=== PATIENT | male | born 1950 | race Caucasian/White ===

== ENCOUNTER 2017-02-10 11:30 | Day surgery (SDC) | payer MEDICARE ==
--- NOTE | ~2017-02-10 | EGD ---
EGD REPORT [facility] [address] [address] NAME: JASMIN HERNANDEZ : 46 STATUS : REG [facility]#: [id number] AGE: 66 ADM/REG DATE : 02/10/17 MR#: [id number] REPORT SERV DATE: 02/10/17 DICTATED BY: CHRISTINEJASMIN DENIS DATE: 02/10/17 REPORT STATUS : Draft TRANSCRIBED BY: [employer] DATE: 02/10/17 [facility] Patient Name: Jasmin Hernandez Date of : 1950 Attending MD: JASMIN KING MD Procedure Date No Time: 02/10/2017 Procedure: Colonoscopy Indications: Screening for colorectal malignant neoplasm Referring MD: NIHARIKA FLOYD MD Medicines: Monitored Anesthesia Care Complications: No immediate complications. Procedure: Pre-Anesthesia Assessment: - ASA Grade Assessment: III - A patient with severe systemic disease. After I obtained informed consent, the scope was passed under direct vision. Throughout the procedure, the patient's blood pressure, pulse, and oxygen saturations were monitored continuously. The CF [id number] was introduced through the anus and advanced to the terminal ileum, with identification of the appendiceal orifice and IC valve. The colonoscopy was performed without difficulty. The patient tolerated the procedure well. The quality of the bowel preparation was good. Findings: The digital rectal exam was normal. Pertinent negatives include no palpable rectal lesions. Two sessile polyps were found in the cecum. The polyps were 3 to 5 mm in size. These polyps were removed with a cold biopsy forceps. Resection and retrieval were complete. A sessile polyp was found in the ascending colon. The polyp was 4 mm in size. The polyp was removed with a cold biopsy forceps. Resection and retrieval were complete. Hemorrhoids were found during retroflexion and were mild. The terminal ileum appeared normal. Impression: - Two 3 to 5 mm polyps in the cecum. Resected and retrieved. - One 4 mm polyp in the ascending colon. Resected and retrieved. - Hemorrhoids. - The examined portion of the ileum was normal. Recommendation: - Patient has a contact number available for emergencies. The signs and symptoms of potential delayed EGD REPORT [address] [address] NAME: HERNANDEZJASMIN De Jesus : 46 STATUS : REG [facility] PAT#: [id number] AGE: 66 ADM/REG DATE : 02/10/17 MR#: [id number] REPORT SERV DATE: 02/10/17 DICTATED BY: JASMIN KING DATE: 02/10/17 REPORT STATUS : Draft TRANSCRIBED BY: [employer] DATE: 02/10/17 complications were discussed with the patient. Return to normal activities tomorrow. Written discharge instructions were provided to the patient. - Regular diet. - Continue present medications. - Repeat colonoscopy for surveillance based on pathology results. - Return to GI clinic PRN. Procedure Code(s): --- Professional --- 43305, Colonoscopy, flexible, proximal to splenic flexure; with biopsy, single or multiple Diagnosis Code(s): --- Professional --- D12.2, Benign neoplasm of ascending colon D12.0, Benign neoplasm of cecum K64.9, Unspecified hemorrhoids Z12.11, Encounter for screening for malignant neoplasm of colon CPT copyright 2013 [employer]. All rights reserved. The codes documented in this report are preliminary and upon medical biller/coder review may be revised to meet current compliance requirements. JASMIN KING MD 02/10/2017 1:01 PM This report has been signed electronically. Number of Addenda: 0 Note Initiated On: 02/10/2017 12:09 PM Scope Withdrawal Time 0 hours 10 minutes 26 seconds [id number] [id number]
[~2017-02-10 11:30] MED LIST: ASA5GR PO; ASAB PO; AVAP150 PO; AVAPRO300 MG PO; FISH-EPA1000 MG PO; FOLTX PO; MVI PO; PRALUENT P75 MG/1 ML SQ; SUPER B COMP PO; VITAMIN B PO; VITAMIN D31000 UNIT PO; VYTORIN 10/80 T1 TAB PO; ZETIA PO; ZOCOR80 MG PO
== END 2017-02-10 23:59 | disposition admitted as inpatient to this hospital (09) ==
LOC: DMU 11:30
PROVIDERS: Internal Medicine Gastroenterology
PROC: 0DBK8ZZ Excision of Ascending Colon, Via Natural or Artificial Opening Endoscopic (ICD-10-PCS; 2017-02-10)
PROC: 0DBH8ZZ Excision of Cecum, Via Natural or Artificial Opening Endoscopic (ICD-10-PCS; principal; 2017-02-10 13:00)
DX: Z12.11 Encounter for screening for malignant neoplasm of colon (principal); D12.0 Benign neoplasm of cecum; K63.5 Polyp of colon; K64.9 Unspecified hemorrhoids; I25.10 Atherosclerotic heart disease of native coronary artery without angina pectoris; Z95.5 Presence of coronary angioplasty implant and graft; Z95.1 Presence of aortocoronary bypass graft; Z88.0 Allergy status to penicillin; Z79.82 Long term (current) use of aspirin; Z79.899 Other long term (current) drug therapy
CPT/HCPCS: 88305